=== PATIENT | male | born 1940 | race Caucasian/White ===

== ENCOUNTER 2024-11-02 13:43 | Outpatient (RCR) | payer MEDICARE, BC, SELFPAY ==
[2024-11-02 14:18] VITALS: BP 129/62; PULSE 86; RESP 16; BMI 30.2
--- NOTE | 2024-11-02 15:18 | PCM.WC.HP ---
History of Present Illness Date of Service: 11/02/24 Chief Complaint: R lateral calf wound History of Wound: Mr. Easton Loja is an 84 y/o male who presents to the wound center today for evaluation and management of a right lateral calf wound as referred by his PCP. He is accompanied to his appointment today by his who supplements much history and performs his wound care. They report that he developed this wound a few weeks ago. 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 They report it first was a large blister which then turned into this superficial wound. They have been caring for this at home by applying an antibiotic ointment, covering it during the day and leaving it open to air at night. He has been on a course of doxycycline which was prescribed by urgent care/PCP and he has also been drinking Jem. He does have significant bilateral lower extremity edema which they report has been ongoing for several months to a year. He sleeps in a recliner with his legs dependent and has done so for years. He does not lie flat or elevate his legs because when he does so he gets leg cramps. He denies any cramping, burning, or aching in his legs with activity or at other times of rest. He denies any known spine disease or chronic back pain. He denies any known history of PAD or prior peripheral vascular interventions. He denies any history of DVT/SVT/PE. He does not wear compression. He is diabetic, last A1c about 1 month ago was 7.2. He is a former smoker. [facility] Home Medications ?Medication ?Instructions ?Recorded ?Last Taken ?Type atorvastatin 80 mg tablet 80 mg PO DAILY 11/02/24 Unknown History bumetanide 1 mg tablet 1 mg PO DAILY 11/02/24 Unknown History donepezil 10 mg tablet 10 mg PO QHS 11/02/24 Unknown History doxycycline hyclate 100 mg capsule 100 mg PO Q12.TCU 11/02/24 Unknown History empagliflozin 25 mg tablet 25 mg PO DAILY 11/02/24 Unknown History (Jardiance) gabapentin 400 mg capsule 400 mg PO DAILY 11/02/24 Unknown History losartan 25 mg tablet 25 mg PO DAILY 11/02/24 Unknown History memantine 10 mg tablet 10 mg PO BID 11/02/24 Unknown History mirabegron 50 mg tablet,extended 50 mg PO DAILY 11/02/24 Unknown History release 24 hr (Myrbetriq) tamsulosin 0.4 mg capsule 0.4 mg PO QHS 11/02/24 Unknown History tirzepatide 10 mg/0.5 mL 10 mg subcut QWEEK 11/02/24 Unknown History subcutaneous pen injector (Mounjaro) Allergy/AdvReac Type Severity Reaction Status Date / Time No Known Allergies Allergy Verified 11/02/24 14:33 Social History Smoking Status: Former smoker Vital Signs Vital Signs Vital Signs: 11/02/24 14:18 Pulse Rate 86 Respiratory Rate 16 Blood Pressure 129/62 H Blood Pressure Mean 84 Blood Pressure Source Monitor Blood Pressure Position Sitting Blood Pressure Location Left Arm Oxygen Delivery Method Room Air Weight Weight: 223 lb Body Mass Index (BMI) 30.2 Physical Exam Const alert, oriented x3 and no apparent distress General Appearance: cooperative and comfortable HEENT normocephalic, hearing grossly normal bilaterally, external ears normal and external nose normal Eyes General Eye: normal appearance of both eyes Neck General: normal visual inspection and trachea midline Resp normal respiratory effort, normal air movement, no retractions and no use of accessory muscles Effort and Inspection: able to speak in complete sentences; Negative for labored, grunting or stridor Cardio regular rate and regular rhythm Extremity Extremity Narrative: Significant bilateral lower extremity edema with circumference measurements: Right calf: 43.8 cm Right ankle: 29.9 cm Left calf: 40.7 cm Left ankle: 28 cm Bilateral pedal pulses palpable though slightly diminished secondary to edema Skin Wounds: wounds noted Wound Narrative: superficial L anterolateral marie ulceration which is to the dermis. There was significant slough overlying the wound bed but following debridement the base is pink and well-bleeding. There is no eschar. There is no surrounding erythema, excess warmth, fluctuance/induration, or foul odor. There is a small, intact fluid-filled blister just distal to the wound. There is a small, intact fluid-filled blister on the medal L marie. Neuro oriented x3 and moves all extremities Speech: speech normal Psych mental status grossly normal Appearance: grossly normal Attitude: calm and engaged Activity / Motor Behavior: appropriate eye contact Speech: normal speech Debridement Note Debridement Note Wound debrided: R calf Laterality: Right Type of Debridement: Excisional debridement Anesthesia Used: 5% Lidocaine Gel Depth: Down to and including healthy tissue (dermis/epidermis) Percentage of wound debrided: 100 Instrument Used: 7mm curette Tissue Removed: slough Severity: Limited To Skin Breakdown Amount of bleeding with debridement: Mild Bleeding Controlled with: Pressure Patient tolerated procedure: Patient tolerated procedure well Post-Debridement Measurements and Additional Note: Post-Debridement Measurements/Treatment - Nurse 1 - General Ulcer Assessment Start: 11/02/24 14:18 Freq: Status: Active Protocol: CHRISTA Activity Type Activity Date Activity User E-sign Co-sign Detail Recorded Client Recorded Date Recorded By Document 11/02/24 14:18 [facility] [id number] 11/02/24 14:32 [facility] 11/02/24 14:18 - Today's Visit Information Type of service Initial Visit Arrival Mode Ambulatory Transfer Assistance None Accompanied by Patient Identification Verified (Name & Yes ) Patient Requires Transmission-Based No Precautions Height and Weight Height 6 ft Weight 223 lb Weight in Pounds 223.0 lbs Weight Measurement Method Stated by Patient Body Mass Index (BMI) 30.2 BMI Classification Obese Vital Signs Pulse Rate (60-100) 86 Pulse Location Monitor Respiratory Rate (12-18) 16 Respiratory rate source Observation Oxygen Delivery Method Room Air Blood Pressure (90/60-120/80) 129/62 H Blood Pressure Mean 84 Source Monitor Position Sitting Blood Pressure Location Left Arm History Since Last Visit- (Skip if this is Patient's initial visit) Left Footwear Regular Shoe Right Footwear Regular Shoe Pain Scale: 0-10 Numeric Is Patient Pain Free? Yes Lower Extremity Assessment/ Foot Assessment/ Toe Nail Assessment Right -Posterior Tibial Palpable No -Posterior Tibial Doppler Monophasic -Dorsalis Pedis Doppler Monophasic -Extremity Color Hyperpigmented, Hemosiderin -Hair Growth on Legs No -Hair Growth on Toes No -Temperature of Extremity Cool -Capillary Refill Less than 3 Seconds -Thick Yes -Discolored Yes -Improper Length & Hygeine No Left -Posterior Tibial Doppler Multiphasic -Dorsalis Pedis Doppler Multiphasic -Extremity Color Hyperpigmented, Hemosiderin -Hair Growth on Legs No -Hair Growth on Toes No -Temperature of Extremity Cool -Capillary Refill Less than 3 Seconds -Thick Yes -Discolored Yes -Deformed No -Improper Length & Hygeine No Communication Assessment Preferred language Hungarian Able to Read Yes Able to Write Yes Communication Tools None Right Hearing Abillity Normal Left Hearing Abillity Normal Visual Assistive Devices Glasses Teaching Assessment Preferences Verbal,Written, Audio/Visual, Demonstration Barriers to Learning None Readiness To Learn Excellent Willingness to Engage in Self Management High Activies Readiness to Engage in Self Management High Activities Anxiety Level Calm Cooperation Cooperative Perception Coherent Interest in Health Problem Asks Questions Education Importance Acknowledges Need Does Patient Smoke tobacco or other No substances Smoking Status Former smoker Is Patient Diabetic Yes Teaching: Wound Center *Welcome to the Wound Center -Person Taught Patient, Significant Other -Teaching Method Discussion -Response to teaching Verbalize Understanding - Nurse 1 - General Ulcer Measurement Start: 11/02/24 14:18 Freq: Status: Active Protocol: Activity Type Activity Date Activity User E-sign Co-sign Detail Recorded Client Recorded Date Recorded By Document 11/02/24 14:18 [facility] [id number] 11/02/24 14:32 [facility] 11/02/24 14:18 Wound Center Nurse 1 #1- R LAT LE -Combined with other wound No -Current Size (cm) - Length 6.4 -Current Size (cm) - Width 4.9 -Current Size (cm) - Depth 0.1 -Total Square Cm 31.36 -Date of Last Picture (Recall this 11/02/24 field) -Photo Taken Yes -Tunneling No -Undermining/Tunneling No -Circular Undermining No -Exudate Amt Large -Exudate Type Serosanguineous -Wound Margin Flat & Intact -Granulation Amt Large (67-100%) -Granulation Quality Red -Slough/Fibrin Yes -Necrosis Amt Small (1-33%) -Necrotic Tissue Type Adherent Slough -Texture (Ghada-wound Skin Appearance) Assessed -Moisture (Ghada-wound Skin Appearance) Assessed,Dry/ Scaly -Color (Ghada-wound Skin Appearance) Assessed -Temperature (Ghada-wound Skin No Abnormality Appearance) (Pt Warm) -Tenderness on Palpation (Ghada-wound No Skin Appearance) -Ulcer Cleansing Soap and Water -Foul Odor after Cleansing No -Anesthetic Used 5% Lidocaine Gel Lower Limb Edema Present Yes Right Calf (cm) 43.8 Right Ankle (cm) 29.9 Left Calf (cm) 40.7 Left Ankle (cm) 28 LIAN - Nurse 2 - General Ulcer CM Notes Start: 11/02/24 14:18 Freq: Status: Active Protocol: Activity Type Activity Date Activity User E-sign Co-sign Detail Recorded Client Recorded Date Recorded By Document 11/02/24 14:47 [id number] 11/02/24 14:57 Document 11/02/24 15:06 [id number] 11/02/24 15:07 11/02/24 11/02/24 14:47 15:06 Wound Center Nurse 2 #1- R LAT LE -Time 14:48 15:06 -Correct Patient Yes Yes -Correct Side, Site, Position Yes Yes -Correct Procedure Yes No -Procedure Performed Yes No -Type of Procedure Debridement -Clinical Debridement Subcutaneous -Tissue Removed Subcutaneous -Post Debridement (cm) - Length 5.3 0.5 -Post Debridement (cm) - Width 5.0 0.3 -Post Debridement (cm) - Depth 0.1 0.1 -Total Square (Post) (cm) 26.50 0.15 -Area of Debridement (cm) - Length 5.3 -Area of Debridement (cm) - Width 5.0 -Total Square (Area) (cm) 26.50 -Tunneling No No -Undermining/Tunneling No No -Circular Undermining No No -Wound/Ulcer Outcome Not Healed Not Healed -Ulcer Cleansing Rinsed/ Irrigated with Saline -Foul Odor after Cleansing No No -Bioengineered Tissue No No -Bleeding Controlled with Pressure NA -Treatment Response Procedure Tolerated Well -Offloading No -Debridement - Subq, 1st 20sq cm Yes -Debridement, SubQ, ea addt'l 20sq cm 1 or part thereof Pain Scale: 0-10 Numeric Is Patient Pain Free? Yes Yes WC - Nurse 3 - General Ulcer D/C NN Start: 11/02/24 14:18 Freq: Status: Active Protocol: Activity Type Activity Date Activity User E-sign Co-sign Detail Recorded Client Recorded Date Recorded By Document 11/02/24 15:08 [id number] 11/02/24 15:09 Document 11/02/24 15:12 [facility] [id number] 11/02/24 15:14 [facility] 11/02/24 11/02/24 15:08 15:12 Wound Care Center Nurse 3 #1- R LAT LE -Ulcer Cleansing Not Cleansed Rinsed/ Irrigated with Saline -Foul Odor after Cleansing No No -Negative Pressure Wound Therapy N/A -Primary Dressing Applied Aquacel Extra, Silicone Border Foam 6x6 -Aquacel Extra 2 -Silicone Border Foam 6x6 2 -Wound Comment(s) band aid BLE -Tubular Bandage Double Layer -Size of Tubigrip Used Size F -Size F ($) 2 Treatment Response Procedure Tolerated Well Pain Scale: 0-10 Numeric Is Patient Pain Free? Yes Yes WC - Visit Discharge Discharge Condition Stable Stable Ambulatory Status Ambulatory Ambulatory Transportation Private Auto Private Auto Charges/Coding Visit Charges Office Visits / Consults: 15375 OV L3 New 30min Procedures Integumentary [id number]: [id number] Joann subq tissue 20 sq cm/< (debridement dermis/epidermis 26.5 sq cm) Assessment/Plan Assessment/Plan (1) Ulcer of right calf, limited to breakdown of skin: CODE(S): L97.211 - Non-pressure chronic ulcer of right calf limited to breakdown of skin (2) Lymphedema: CODE(S): I89.0 - Lymphedema, not elsewhere classified (3) Bilateral lower extremity edema: CODE(S): R60.0 - Localized edema (4) Type 2 diabetes mellitus: CODE(S): E11.9 - Type 2 diabetes mellitus without complications PLAN: Plan I believe that this ulceration is largely mediated by his significant bilateral lower extremity edema. Certainly his diabetes also complicates healing. His lower extremity cramping with elevation complicates management of his edema; by exam and history do not have strong suspicion for PAD but will consider formal arterial study in the future pending wound progress. For wound care: (1) Cleanse the area gently with antibacterial soap and water, pat gently to dry (2) Apply Aquacel Extra to the wound base (3) Cover with foam border dressing such as Dutton-SAP or cover with ABD and dry gauze wrap with tape secured to the dressing and avoiding placing tape on the skin (4) Change at least once daily but more often as needed to manage drainage and keep clean and dry. I emphasized the importance of compression in the management of his edema and in wound healing. Will apply tubigrips bilaterally today. Given he sleeps with his legs dependent, I recommend leaving these in place at night. I advise more frequent leg elevation at times of rest if at all possible. Otherwise, encouraged frequent ambulation with avoidance of prolonged idle sitting/standing. Continue Jem supplementation. Will plan for return to the clinic in 1 week, sooner as needed.
--- NOTE | 2024-11-03 13:40 | WC ---
PHOTO 11/02/24 RIGHT LATERAL
== END 2024-11-04 23:59 | disposition home or self-care (01) ==
LOC: WC 13:43
PROVIDERS: PCP Family Medicine; Referring Provider Family Medicine; Visit Provider Physician Assistant
DX: E11.622 Type 2 diabetes mellitus with other skin ulcer (principal); L97.211 Non-pressure chronic ulcer of right calf limited to breakdown of skin; Z79.85 Long-term (current) use of injectable non-insulin antidiabetic drugs; Z87.891 Personal history of nicotine dependence; I89.0 Lymphedema, not elsewhere classified; Z79.84 Long term (current) use of oral hypoglycemic drugs
CPT/HCPCS: 11042; 11045; 99203; 99213; G0463

== ENCOUNTER 2024-11-23 15:30 | Outpatient (RCR) | payer MEDICARE, BC, SELFPAY ==
[2024-11-05 00:45] VITALS: BP 129/62; PULSE 86; RESP 16; BMI 30.2
[2024-11-09 13:32] VITALS: BP 111/54; PULSE 83; RESP 16; TEMP 36.2; BMI 30.2
[2024-11-23 14:53] VITALS: BP 118/61; PULSE 77; RESP 18; TEMP 36.2; BMI 30.2
== END 2024-12-04 23:59 | disposition home or self-care (01) ==
LOC: WC 15:30
PROVIDERS: PCP Family Medicine; Referring Provider Family Medicine; Visit Provider Physician Assistant
DX: E11.622 Type 2 diabetes mellitus with other skin ulcer (principal); L97.211 Non-pressure chronic ulcer of right calf limited to breakdown of skin; I89.0 Lymphedema, not elsewhere classified; S80.821S Blister (nonthermal), right lower leg, sequela; W22.8XXS Striking against or struck by other objects, sequela; R60.0 Localized edema; M54.9 Dorsalgia, unspecified; G89.29 Other chronic pain; Z79.84 Long term (current) use of oral hypoglycemic drugs; Z79.85 Long-term (current) use of injectable non-insulin antidiabetic drugs; Z79.899 Other long term (current) drug therapy; Z87.891 Personal history of nicotine dependence
CPT/HCPCS: 11042; 11045

== ENCOUNTER 2024-12-14 14:27 | Outpatient (RCR) | payer MEDICARE, BC, SELFPAY ==
[2024-12-14 15:18] VITALS: BP 123/58; PULSE 77; RESP 18; TEMP 36
--- NOTE | 2024-12-14 17:26 | PCM.WC.PN ---
History of Present Illness Date of Service: 12/14/24 Chief Complaint: R lateral calf wound History of Wound: Mr. Easton Loja is an 84 y/o male who presents to the wound center today for evaluation and management of a right lateral calf wound as referred by his PCP. He is accompanied to his appointment today by his who supplements much history and performs his wound care. They report that he developed this wound a few weeks ago. 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 They report it first was a large blister which then turned into this superficial wound. They have been caring for this at home by applying an antibiotic ointment, covering it during the day and leaving it open to air at night. He has been on a course of doxycycline which was prescribed by urgent care/PCP and he has also been drinking Jem. He does have significant bilateral lower extremity edema which they report has been ongoing for several months to a year. He sleeps in a recliner with his legs dependent and has done so for years. He does not lie flat or elevate his legs because when he does so he gets leg cramps. He denies any cramping, burning, or aching in his legs with activity or at other times of rest. He denies any known spine disease or chronic back pain. He denies any known history of PAD or prior peripheral vascular interventions. He denies any history of DVT/SVT/PE. He does not wear compression. He is diabetic, last A1c about 1 month ago was 7.2. He is a former smoker. Subjective Subjective He has done very well over the last 2 weeks; he has been consistently wearing his new measured compression stockings and has been elevating his legs more. They believe his wound is healed today. Objective Data Objective Data Vital Signs: Vital Signs Temp Pulse Resp BP O2 Del Method 96.8 F L 77 18 123/58 H Room Air 12/14/24 15:18 12/14/24 15:18 12/14/24 15:18 12/14/24 15:18 12/14/24 15:18 Oxygen Delivery Method Room Air Charges/Coding Visit Charges Office Visits / Consults: 16924 OV L1 Est Physical Exam Const alert, oriented x3 and no apparent distress General Appearance: cooperative and comfortable HEENT normocephalic, hearing grossly normal bilaterally, external ears normal and external nose normal Eyes General Eye: normal appearance of both eyes Neck General: normal visual inspection and trachea midline Resp normal respiratory effort, normal air movement, no retractions and no use of accessory muscles Effort and Inspection: able to speak in complete sentences; Negative for labored, grunting or stridor Cardio regular rate and regular rhythm Extremity Extremity Narrative: Improved BLE edema, trace today Bilateral pedal pulses palpable Skin Wounds: wounds noted Wound Narrative: His prior RLE ulceration is fully epithelialized Neuro oriented x3 and moves all extremities Speech: speech normal Psych mental status grossly normal Appearance: grossly normal Attitude: calm and engaged Activity / Motor Behavior: appropriate eye contact Speech: normal speech Debridement Note Debridement Note No debridement was completed: No debridement was completed today Assessment/Plan Assessment/Plan (1) Ulcer of right calf, limited to breakdown of skin: CODE(S): L97.211 - Non-pressure chronic ulcer of right calf limited to breakdown of skin (2) Lymphedema: CODE(S): I89.0 - Lymphedema, not elsewhere classified (3) Bilateral lower extremity edema: CODE(S): R60.0 - Localized edema (4) Type 2 diabetes mellitus: CODE(S): E11.9 - Type 2 diabetes mellitus without complications PLAN: Plan His RLE wound is healed today. His BLE edema has been much better controlled with the use of measured compression stockings and increased leg elevation and I strongly advise continuing these measures to prevent wound recurrence. He is discharged from the wound center today and will return as needed.
--- NOTE | 2024-12-15 10:31 | WC ---
PHOTO 12/14/24 RIGHT LATERAL LE
== END 2024-12-14 15:31 | disposition home or self-care (01) ==
LOC: WC 14:27
PROVIDERS: PCP Family Medicine; Referring Provider Family Medicine; Visit Provider Physician Assistant
DX: E11.622 Type 2 diabetes mellitus with other skin ulcer (principal); L97.211 Non-pressure chronic ulcer of right calf limited to breakdown of skin; R60.0 Localized edema; Z87.891 Personal history of nicotine dependence; I89.0 Lymphedema, not elsewhere classified
CPT/HCPCS: 99213; G0463